=== PATIENT | female | born 2000 | race Caucasian/White ===

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

== ENCOUNTER 2021-05-18 18:00 | Emergency (ER) | payer OTHER ==
[2021-05-18 18:09] VITALS: TEMP 98.9; BMI 38.9
[2021-05-18] MEDS ORDERED: IBUPROFEN 600 MG TABLET (FP) PO ONE ×2 (21:08→21:10)
[2021-05-18 21:54] VITALS: BP 121/76; PULSE 68
== END 2021-05-18 21:44 | disposition home or self-care (01) ==
LOC: JER 18:00
DX: R07.89 Other chest pain (principal)
CPT/HCPCS: 71046-TC-FY; 93005; 93010; 99284-25

== ENCOUNTER 2021-10-24 13:48 | Emergency (ER) | payer OTHER ==
[2021-10-24 14:15] VITALS: BP 113/68; PULSE 94; TEMP 98.3; BMI 36.3
[2021-10-24] MEDS ORDERED: DIPHTH,PERTUSS(ACELL),TET 0.5 ML DISP.SYRIN IM ONE ×2 (15:16→15:17)
== END 2021-10-24 15:22 | disposition home or self-care (01) ==
LOC: JER 13:48 → JERFT 13:48
PROC: 0HQFXZZ Repair Right Hand Skin, External Approach (ICD-10-PCS; principal; 2021-10-24)
PROC: 3E0234Z Introduction of Serum, Toxoid and Vaccine into Muscle, Percutaneous Approach (ICD-10-PCS; 2021-10-24)
DX: S61.210A Laceration without foreign body of right index finger without damage to nail, initial encounter (principal); W25.XXXA Contact with sharp glass, initial encounter
CPT/HCPCS: 90471; 90715; 99282-25

== ENCOUNTER 2021-10-31 11:47 | Emergency (ER) | payer OTHER ==
[2021-10-31 11:54] VITALS: BP 130/80; PULSE 86; TEMP 98; BMI 38.9
== END 2021-10-31 13:23 | disposition home or self-care (01) ==
LOC: JERFT 11:47
DX: S61.210A Laceration without foreign body of right index finger without damage to nail, initial encounter (principal); W25.XXXA Contact with sharp glass, initial encounter; Z48.02 Encounter for removal of sutures
CPT/HCPCS: 99281-25

== ENCOUNTER 2023-11-30 16:44 | Emergency (ER) | payer OTHER ==
[2023-11-30 16:57] VITALS: BP 128/75; PULSE 96; RESP 18; TEMP 98.1; BMI 47.4
[2023-11-30 17:28] LABS: PH,URINE 5.5 (5.0-8.0); URINE APPEARANCE CLEAR; URINE BILIRUBIN NEGATIVE (NEGATIVE); URINE COLOR YELLOW; URINE GLUCOSE (UA) NEGATIVE (NEGATIVE); URINE KETONE NEGATIVE (NEGATIVE); URINE LEUK ESTERASE NEGATIVE (NEGATIVE); URINE NITRITE NEGATIVE (NEGATIVE); URINE PROTEIN NEGATIVE (NEGATIVE); URINE UROBILINOGEN 0.2 mg/dL (0.2-1.0)
[2023-11-30 17:30] LABS: HCG,QUALITATIVE URINE Negative
== END 2023-11-30 18:45 | disposition home or self-care (01) ==
LOC: JER 16:44
DX: R51.9 Headache, unspecified (principal)
CPT/HCPCS: 70450-TC; 81003; 84703; 87077; 87086; 99284-25

== ENCOUNTER 2024-06-05 09:38 | Emergency (ER) | payer OTHER ==
[2024-06-05 09:46] VITALS: BP 123/91; PULSE 108; RESP 16; TEMP 98; BMI 45.9
[2024-06-05 10:47] LABS: BASO % 0.7 % (0-2.0); EOS % 1.8 % (0-4.5); HEMATOCRIT 38.4 % (32.4-45.2); HEMOGLOBIN 13.7 GM/dL (10.7-15.3); LYMPH % 24.5 % (8-40); MCH 31.8 pg (25.7-33.7); MCHC 35.7 g/dl (32.0-36.0); MEAN PLT VOLUME 6.3 fl (7.5-11.1); MONO % 5.3 % (3.8-10.2); NEUT % 67.7 % (42.8-82.8); PLATELET COUNT 560 10^3/uL (134-434); RBC 4.32 M/mm3 (3.60-5.2); RDW 13.3 % (11.6-15.6); WHITE BLOOD COUNT 9.3 K/mm3 (4.0-10.0)
[2024-06-05 10:54] LABS: INR 1.11 (0.83-1.09); PROTHROMBIN TIME (PATIENT) 12.7 SEC (9.7-13.0)
[2024-06-05 11:06] LABS: POTASSIUM 4.1 mmol/L (3.5-5.1)
[2024-06-05 11:07] LABS: CALCIUM 9.1 mg/dL (8.5-10.1)
[2024-06-05 11:09] LABS: ALBUMIN 3.4 g/dl (3.4-5.0); BLOOD UREA NITROGEN 9.8 mg/dL (7-18)
[2024-06-05 11:12] LABS: CREATININE 0.7 mg/dL (0.55-1.3)
[2024-06-05 11:13] LABS: TOT PROT 7.6 g/dl (6.4-8.2)
[2024-06-05 11:14] LABS: BILIRUBIN,TOTAL 0.2 mg/dL (0.2-1)
== END 2024-06-05 14:06 | disposition home or self-care (01) ==
LOC: JER 09:38
DX: N92.0 Excessive and frequent menstruation with regular cycle (principal)
CPT/HCPCS: 36415; 76830-TC; 80053; 84439; 84443; 84703; 85025; 85610; 86850; 86900; 86901; 99284-25